=== PATIENT | female | born 1985 | race Hispanic/Latino ===

== ENCOUNTER 2018-10-15 13:12 | Emergency (ER) | payer OTHER ==
[2018-10-15] MEDS ORDERED: NORCO 5/325 PO STA (13:45)
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
[2018-10-15] MEDS ORDERED: FLEXERIL PO ONE (17:00)
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
[2018-10-15 17:51] VITALS: BP 131/87
== END 2018-10-15 17:51 | disposition home or self-care (01) ==
LOC: ED 13:12
DX: M79.10 Myalgia, unspecified site (principal); V89.2XXA Person injured in unspecified motor-vehicle accident, traffic, initial encounter; Y93.89 Activity, other specified; Y92.410 Unspecified street and highway as the place of occurrence of the external cause; Y99.8 Other external cause status
CPT/HCPCS: 71046; 72100; 99283

== ENCOUNTER 2019-03-14 10:43 | Emergency (ER) | payer OTHER ==
[2019-03-14] MEDS ORDERED: ASPIRIN PO ONE (11:01)
--- NOTE | 2019-03-14 11:22 | XRay Report ---
CHEST 1 VIEW INDICATION: Chest pain for one day. COMPARISON: 10/15/2018 FINDINGS: Support devices: None. Heart: Within normal limits. Lungs/Pleura: No acute air space or interstitial disease. Additional findings: None. IMPRESSION: No acute findings. Signer Name: Arya Sood Jr, MD Signed: 03/14/2019 11:18 AM Workstation Name: [id number]
[2019-03-14 11:33] LABS: Basophils # (Auto) 0.1 K/mm3 (0.0-0.1); Basophils % (Auto) 0.7 % (0.0-1.8); Eosinophils # (Auto) 0.1 K/mm3 (0.0-0.4); Eosinophils % (Auto) 0.8 % (0.0-4.3); Hematocrit 45.1 % (30.3-42.9); Hemoglobin 15.3 gm/dl (10.1-14.3); Lymphocytes # (Auto) 2.1 K/mm3 (1.2-5.4); Lymphocytes % (Auto) 23.7 % (13.4-35.0); Mean Corpuscular HGB Conc 34 % (30-34); Mean Corpuscular Hemoglobin 31 pg (28-32); Mean Corpuscular Volume 90 fl (79-97); Monocytes # (Auto) 0.5 K/mm3 (0.0-0.8); Monocytes % (Auto) 5.6 % (0.0-7.3); Platelet Count 304 K/mm3 (140-440); Red Blood Count 5.02 M/mm3 (3.65-5.03); Red Cell Distribution Width 14.6 % (13.2-15.2)
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
[2019-03-14 11:58] LABS: BUN/Creatinine Ratio 22; Blood Urea Nitrogen 13 mg/dL (7-17); Calcium 9.5 mg/dL (8.4-10.2); Hemolysis Index 19
[2019-03-14 12:46] LABS: Alanine Aminotransferase 22 units/L (7-56); Albumin 4.4 g/dL (3.9-5); Lipase 25 units/L (13-60)
[2019-03-14 12:51] LABS: Bilirubin,Direct < 0.2 mg/dL (0-0.2)
--- NOTE | 2019-03-14 13:23 | Cat Scan Report ---
CT ABDOMEN AND PELVIS WITHOUT CONTRAST INDICATION / CLINICAL INFORMATION: epigastric pain and LUQ pain and tenderness to palpation. Left-sided back pain for 4 days. TECHNIQUE: Axial CT images were obtained through the abdomen and pelvis without IV contrast. All CT scans at [facility] are performed using CT dose reduction for ALARA by means of automated exposure control. COMPARISON: None available. FINDINGS: LOWER CHEST: No significant abnormality. LIVER: No significant abnormality. GALLBLADDER: No significant abnormality. BILE DUCTS: No significant abnormality. PANCREAS: No significant abnormality. SPLEEN: No significant abnormality. ADRENALS: No significant abnormality. RIGHT KIDNEY and URETER: No significant abnormality. LEFT KIDNEY and URETER: No significant abnormality. STOMACH and SMALL BOWEL: No significant abnormality. COLON: No significant abnormality. APPENDIX: No significant abnormality. PERITONEUM: No free fluid. No free air. No fluid collection. LYMPH NODES: No significant adenopathy. AORTA and ARTERIES: No significant abnormality. IVC and VEINS: No significant abnormality. URINARY BLADDER: No significant abnormality. REPRODUCTIVE ORGANS: Small bilateral ovarian cysts. ADDITIONAL FINDINGS: None. SKELETAL SYSTEM: No significant abnormality. IMPRESSION: 1. No inflammatory process or bowel obstruction. 2. No urinary tract stones or hydronephrosis. 3. Small bilateral ovarian cysts. No free fluid. No routine follow-up is needed. Signer Name: Asia Narayan MD Signed: 03/14/2019 1:19 PM Workstation Name: [id number]
[2019-03-14] MEDS ORDERED: ALUM-MAG HYDROX-SIMETH 200-200-20MG/5ML PO ONE (14:16)
[2019-03-14] MEDS ORDERED: LIDOCAINE VISCOUS 2% PO ONE (14:16)
[2019-03-14 14:35] VITALS: BP 130/85
== END 2019-03-14 14:35 | disposition home or self-care (01) ==
LOC: ED 10:43
DX: K29.70 Gastritis, unspecified, without bleeding (principal); N83.209 Unspecified ovarian cyst, unspecified side; R07.89 Other chest pain; F17.200 Nicotine dependence, unspecified, uncomplicated; Z88.5 Allergy status to narcotic agent; Z88.8 Allergy status to other drugs, medicaments and biological substances; Z79.1 Long term (current) use of non-steroidal anti-inflammatories (NSAID); Z79.899 Other long term (current) drug therapy
CPT/HCPCS: 36415; 71046; 74176; 80048; 80076; 83690; 84484; 84703; 85025; 93005; 93010; 99285

== ENCOUNTER 2019-04-14 08:27 | Emergency (ER) | payer SELFPAY ==
[2019-04-14 08:41] VITALS: BP 119/81
== END 2019-04-14 09:38 | disposition left against medical advice (07) ==
LOC: ED 08:27
DX: R07.89 Other chest pain (principal); R51 Headache; R06.02 Shortness of breath; Z53.21 Procedure and treatment not carried out due to patient leaving prior to being seen by health care provider